=== PATIENT | male | born 1975 | race Caucasian/White ===

== ENCOUNTER 2017-06-27 16:30 | Inpatient (IN) | payer MEDICARE ==
[~2017-06-27] VITALS: Ht 167.6 cm; Wt 94.4 kg
[2017-06-27 17:49] VITALS: BP 107/70; BMI 32.3
[2017-06-27 18:14] LABS: BASOPHILS 0.1 % (0-2); HEMATOCRIT 43.5 % (42.0-54.0); HEMOGLOBIN 14.5 g/dL (13.5-17.5); IMMATURE GRANULOCYTES 1.7 % (0-5); LYMPHOCYTES 12.5 % (15-50); MCH 27.2 pg (26.0-34.0); MCHC 33.3 g/dL (31.0-37.0); MCV 81.5 fL (80.0-100.0); MEAN PLATELET VOLUME 9.6 fL (7.4-10.4); MONOCYTES 11.2 % (2-11); NEUTROPHILS 72.5 % (40-80); PLATELET COUNT 220 10x3/uL (130-400); RBC 5.34 10x6/uL (4.20-6.10); RDW 14.6 % (11.5-14.5); WBC 7.8 10x3/uL (4.8-10.8)
[2017-06-27] MEDS ORDERED: TACROLIMUS ANHYD1 MG PO (18:17)
[2017-06-27] MEDS ORDERED: CELLCEPT250 MG PO (18:20)
[2017-06-27] MEDS ORDERED: METOPROLOL TART50 MG PO (18:21)
[2017-06-27] MEDS ORDERED: LIPITOR80 MG PO (18:21)
[2017-06-27 18:23] LABS: ALBUMIN 3.5 g/dL (3.4-5.0); BILIRUBIN - DIRECT 0.08 mg/dL (0.00-0.30); BILIRUBIN - INDIRECT 0.27 mg/dL (0.00-1.00); BILIRUBIN - TOTAL 0.35 mg/dL (0.2-1.3); CALCIUM 7.9 mg/dL (8.5-10.1); CARBON DIOXIDE 14.5 mmol/L (21.0-32.0); CREATININE - SERUM 2.2 mg/dL (0.6-1.3); POTASSIUM - SERUM 5.5 mmol/L (3.5-5.1); PROTEIN - SERUM 6.8 g/dL (6.4-8.2)
[2017-06-27] MEDS ORDERED: VASCEPA1 GM PO (18:23)
[2017-06-27] MEDS ORDERED: BYDUREON P2 MG/0.65 SC (18:23)
[2017-06-27] MEDS ORDERED: MAG-OX 400 MG400 MG PO (18:24)
[2017-06-27] MEDS ORDERED: TRICOR48 MG PO (18:25)
[2017-06-27] MEDS ORDERED: ACETAMINOPHEN500 M1 PO (18:25)
--- NOTE | 2017-06-27 18:42 | NUR ---
DR GARCIA PAGED ABOUT LAB.
--- NOTE | 2017-06-27 18:51 | NUR ---
DR GARCIA CALLED LABS REVIEWED. NEW ORDERS OBTAINED.
[2017-06-27 19:00] VITALS: BP 130/76
--- NOTE | 2017-06-27 19:18 | NUR ---
Received patient resting in bed. Alert and oriented x 4, pleasant on approach. Made aware that both and have approved that his insulin pump may remain in and be used by patient to manage his diabetic insulin needs. Reviewed settings with patient. Patient is on Humalog Quick Pen, from midnight to 4pm he [id number] 6.2 Units of insulin, and from 4pm to midnight he receives 6 Units of insulin. His machine checks his BG every 5 minutes. When his BG elevates to above 250, he is notified by the machine and then he checks his preprogramed settings to see how much bolus insulin he needs to give. Will check in with patient later regarding his BG checks. Patient denies any nausea at this time and states he has had no emesis since admission. Denies any pain or discomfort. Currently his PIV is in his left forearm infusing NS @150ml/hr. Patient is requesting his original copy of his home medications to be returned to him and we can make a copy for his chart. I will check his chart to obtain same.
--- NOTE | 2017-06-27 20:11 | NUR ---
Vomiting in BR, large amount, yellow orange color thick emesis. Given Zofran 4mg per IV PRN, will monitor for effectiveness. Had been up to BR and had a BM and voided but due to emesis specimen was contaminated before it could be collected. Patient will call staff when next voids and when has next BM.
--- NOTE | 2017-06-27 21:19 | NUR ---
HS WR=740, patient has givenhimself isulin from his insulin pump per preset amounts. Gave self 5 Units of Humalog Quick insulin and 10 Units of Novolog.
--- NOTE | 2017-06-27 21:24 | NUR ---
PIV site noted to have swelling, attempted to flush, no blood return and patient complains of pain. Alerted Charge Nurse, PIV has started to infiltrate, infusion stopped.
--- NOTE | 2017-06-27 21:59 | NUR ---
Urine specimen obtained and sent to lab, Zofran PRN given earlier has been effective, no furthur vomiting episodes, denies nausea at this time.
--- NOTE | 2017-06-27 22:05 | NUR ---
Attempted x 2 to resite PIV, blood return each time but unable to push needle through query valve. Charge Nurse will try when available.
[2017-06-27 22:11] LABS: APPEARANCE CLEAR (CLEAR); BILIRUBIN NEGATIVE (NEGATIVE); COLOR YELLOW (YELLOW); GLUCOSE 1000 mg/dL (NEGATIVE); KETONE NEGATIVE (NEGATIVE); LEUKOCYTE ESTERASE NEGATIVE (NEGATIVE); NITRITE NEGATIVE (NEGATIVE); PROTEIN NEGATIVE (NEGATIVE); SPECIFIC GRAVITY 1.015 (1.005-1.020); UROBILINOGEN NORMAL (NORMAL)
--- NOTE | 2017-06-27 22:35 | NUR ---
PIV re-sited by Charge Nurse in lower left arm. Patient is reserve right arm. PIV is #20 and IV fluids restarted infusing.
--- NOTE | 2017-06-27 23:30 | NUR ---
K5dismzm comfortably, denies furthur nausea. Zofran effective, has had no furthur emesis, states feeling well at this time. Requesting [place] Soda and same given.
[2017-06-28] VITALS: BP 119/70
--- NOTE | 2017-06-28 02:59 | NUR ---
Patient reports low BG, perspiring, shaky, BG = 47. Showed staff the reading on his personal machine. Given snack of peanut butter and sanchez grahams.
--- NOTE | 2017-06-28 03:00 | NUR ---
Persipring, sweaty, cool clammy skin, given partial bedbath by two staff, changed into clean dry hospital gown.
--- NOTE | 2017-06-28 03:19 | NUR ---
BG check on patient's machine now is 95.
[2017-06-28 04:00] VITALS: BP 107/66
[2017-06-28 05:34] LABS: BASOPHILS 0.3 % (0-2); EOSINOPHILS 1.7 % (0-7); HEMATOCRIT 41.2 % (42.0-54.0); HEMOGLOBIN 13.8 g/dL (13.5-17.5); LYMPHOCYTES 13.1 % (15-50); MCH 27.1 pg (26.0-34.0); MCHC 33.5 g/dL (31.0-37.0); MCV 80.8 fL (80.0-100.0); MEAN PLATELET VOLUME 9.3 fL (7.4-10.4); MONOCYTES 12.2 % (2-11); NEUTROPHILS 71.7 % (40-80); PLATELET COUNT 220 10x3/uL (130-400); RDW 14.5 % (11.5-14.5); WBC 7.9 10x3/uL (4.8-10.8)
[2017-06-28 05:53] LABS: CALCIUM 7.9 mg/dL (8.5-10.1); CREATININE - SERUM 2.3 mg/dL (0.6-1.3)
[2017-06-28 05:56] LABS: ANION GAP 15.4 mmol/L (8-16); CARBON DIOXIDE 18.9 mmol/L (21.0-32.0); POTASSIUM - SERUM 4.3 mmol/L (3.5-5.1)
--- NOTE | 2017-06-28 06:17 | NUR ---
Resting quietly, BG =172 at this time per patient's personal insulin pump. Skin warm and dry at this time. Respirations unlabored. Denies pain or discomfort.
[2017-06-28 08:00] VITALS: BP 116/63
--- NOTE | 2017-06-28 08:00 | NUR ---
AM ROUNDS - PT IS AWAKE IN BED. RESERVE RIGHT ARM. PT REFUSES SCD. PT ON RA. IV TO LEFT ARM, D5W WITH BICARB. BED AT LOWEST POSITION. CALL LAGUNAS IN REACH. SIDE RAILS UP X2. NO NEEDS AT THIS TIME. WILL CONTINUE TO MONITOR
--- NOTE | 2017-06-28 10:39 | NUR ---
CALLED PHARMACY BECAUSE WE DO NOT HAVE TRICORE. WAITING ON PHARMACY
--- NOTE | 2017-06-28 11:53 | NUR ---
CALLED PHARMACY AGAIN ABOUT NOT HAVING TRICOR. AWAITING MEDICATION
[2017-06-28 12:50] VITALS: Ht 167.6 cm; Wt 94.4 kg
[2017-06-28 13:33] VITALS: BP 108/68
--- NOTE | 2017-06-28 14:04 | HP ---
PATIENT: PENNIE BADILLO MEDICAL RECORD: [id number] ACCOUNT: [id number] LOCATION:[address] : [birth year] ADMISSION DATE: 06/27/17 HISTORY AND PHYSICAL EXAMINATION REASON FOR ADMISSION: Intractable diarrhea, hypoglycemia and type 1 diabetic. HISTORY OF PRESENT ILLNESS: The patient is a 42-year-old male with history of type 1 diabetes and previous renal transplant. The patient states his whole family has had diarrhea 2 weeks ago. He developed about 8 days ago. He is having 8 stools a day and saw Dr. Castro 4 days ago, was placed on Lomotil and a lactose free diet. His creatinine at that time was 1.8, which is baseline. He came back today because his diarrhea had continued. He says his blood sugars have been dropping and had been unable to keep up with his calorie intake. His blood sugar was 70 and felt near syncopal. In the office, he was afebrile, it has minimal tenderness in his lower abdomen. He is now admitted to the hospital for recurrent diarrhea, acute renal insufficiency and type 1 diabetes mellitus with hypoglycemia. PAST MEDICAL HISTORY: Type 1 diabetic with end-stage renal disease, post-renal transplant in 2012, history of GERD, HPLD, diabetic peripheral neuropathy, history of cellulitis, GERD, hyperlipidemia, hypertension, diabetic retinopathy, retinal detachment, right eye remotely, sepsis remotely, reactive airway disease, decreased hearing. PAST SURGICAL HISTORY: Retinal tear detached on the right, transplant of right kidney, trigger finger release, finger external fixation device application performed, incision and drainage performed by Dr. Lizarraga on index finger and then removal of hardware. SOCIAL HISTORY: Nonsmoker, nondrinker. He is and lives with his and son. He is employed. FAMILY HISTORY: Positive for hypertension in his father, kidney problems with his mother and sister has type 1 diabetes. CURRENT MEDICATIONS: Bydureon 2 mg injected every 7 days, NovoLog per sliding scale. Continue meds, Pepcid 20 mg p.o. at h.s. Prograf 1 mg 2 caps p.o. b.i.d., CellCept 200 mg 3 caps p.o. b.i.d., Lantus 35 units subQ q.p.m. Vascepa 1 gram 2 caps p.o. b.i.d., metoprolol tartrate 50 mg p.o. b.i.d. ALLERGIES: None mentioned. REVIEW OF SYSTEMS: GENERAL: Had fever and has been fatigued with poor appetite. HEENT: Has trouble hearing. No recent new visual private branch exchange repairer his chronic issues. Denies sore throat. RESPIRATORY: No SOB or cough. CARDIAC: No chest pain, palpitations or edema. GASTROINTESTINAL: He has had nausea and vomited once. He has had significant 4-6 stools, watery diarrhea for 8 days. ENDOCRINE: Denies polyuria, polydipsia, heat or cold intolerance. NEUROLOGIC: Has chronic trouble with numbness in the bottoms of his feet and tops of his feet and ankles. Denies headaches or seizures. MUSCULOSKELETAL: Denies arthralgias. HISTORY AND PHYSICAL [id number] PENNIE BADILLO PHYSICAL EXAMINATION: VITAL SIGNS: Blood pressure 130/80, heart rate is 90 and regular, respirations are 18. Weight is currently pending. HEENT: Head is normocephalic. Eyes were clear with poor vision, OU. Oropharynx unremarkable. NECK: No bruits or masses. CHEST: Distant breath sounds without wheeze or rales. HEART: Tachycardic with I/ aortic murmur. ABDOMEN: Soft. Hyperactive bowel sounds, nontender. RECTAL: Deferred. EXTREMITIES: Show no gross edema. He has good sensation to touch in the bottoms of both feet. NEUROLOGICAL: He is oriented to person, place, and time. Cranial nerves are intact. Sensory is decreased in both lower extremities below the ankles. LABORATORY DATA: Blood sugar in the office was 70. Other lab is currently pending. ASSESSMENT: 1. Intractable diarrhea with [id number] renal insufficiency 2. Type 1 diabetes mellitus. 3. History of renal transplant, on insulin pump. PLAN: The patient will be placed on high dose IV fluids. Renal consult will be obtained. Continue home medications. We will lower his evening insulin dose sliding scale insulin. Further workup pending clinical course. Stool studies will be obtained. TRANSINT:[id number] Voice Confirmation ID: [id number] DOCUMENT ID: [id number] NANY MONTESINOS MD at 1404 CC: [id number] DICTATION DATE: 06/27/171751 BILINGUAL SALES REPRESENTATIVE: 06/27/172127 ADM IN [address] [place] [address]
[2017-06-28 16:55] VITALS: BP 111/66
--- NOTE | 2017-06-28 17:03 | NUR ---
PT IN BED RESTING WITH NO NEEDS AT THIS TIME. WILL CONTINUE TO MONITOR
[2017-06-28 19:00] VITALS: BP 115/57
--- NOTE | 2017-06-28 19:30 | NUR ---
LAB STAFF CALL AND STATE: PT POSITIVE FOR C DIFF. EXPLAIN IT TO PT, AND PUT ISOLATION PRECAUTIONS ON DOOR.
--- NOTE | 2017-06-28 20:15 | NUR ---
REST IN BED AND WATCH TV.
[2017-06-29] VITALS: BP 134/68
--- NOTE | 2017-06-29 03:06 | NUR ---
REST IN BED QUIETLY, EYE LOSE, CALL LIGHT WITHIN REACH.
[2017-06-29 04:00] VITALS: BP 111/57
[2017-06-29 05:21] LABS: HEMATOCRIT 35.8 % (42.0-54.0); HEMOGLOBIN 11.9 g/dL (13.5-17.5); LYMPHOCYTES 14.4 % (15-50); MCH 26.1 pg (26.0-34.0); MCHC 33.2 g/dL (31.0-37.0); MCV 78.5 fL (80.0-100.0); MEAN PLATELET VOLUME 8.7 fL (7.4-10.4); NEUTROPHILS 71.4 % (40-80); PLATELET COUNT 161 10x3/uL (130-400); RBC 4.56 10x6/uL (4.20-6.10); RDW 14.3 % (11.5-14.5); WBC 4.5 10x3/uL (4.8-10.8)
[2017-06-29 05:36] LABS: ANION GAP 15.4 mmol/L (8-16); CALCIUM 7.3 mg/dL (8.5-10.1); CARBON DIOXIDE 21.6 mmol/L (21.0-32.0); CREATININE - SERUM 2.1 mg/dL (0.6-1.3); MAGNESIUM - SERUM 1.3 mg/dL (1.8-2.4)
--- NOTE | 2017-06-29 07:30 | NUR ---
REPORT RECIEVED. PT RESTING QUIETLY, DENIES NEEDS AT THIS TIME. RR EVEN AND UNLABORED. INTRODUCED SELF AND PLACED NAME ON WHITE BOARD. WILL CTM.
--- NOTE | 2017-06-29 07:30 | NUR ---
REPORT RECIVED. PT RESTING QUIETLY, DENIES NEEDS AT THIS TIME. RR EVEN AND UNLABORED. STARTED 2ND BAG OF MAG SULFATE. WILL CTM.
--- NOTE | 2017-06-29 07:43 | NUR ---
AM ROUNDS - PT IN BED AND APPEARS TO BE SLEEPING WITH EQUAL AND NON LABORED BREATHING. PT IS ON CONTACT ISOLATION. IV TO LEFT FA, D5W BICARB AT 125. PT ON ROOM AIR. WILL CONTINUE TO MONITOR
[2017-06-29 08:39] VITALS: BP 124/72
[2017-06-29 13:00] VITALS: BP 93/72
--- NOTE | 2017-06-29 16:05 | NUR ---
PT IV HAS BECOME PAINFUL AND NO LONGER WORKING. 2 RNs HAVE BEEN UNSUCCESSFUL IN GAINING IV ACCESS. WILL CONTINUE TO MONITOR.
[2017-06-29 17:31] VITALS: BP 139/70
--- NOTE | 2017-06-29 18:19 | NUR ---
IV STARTED ON PT. STARTED IV MEDS. WILL CONTINUE TO MONITOR
[2017-06-29 19:00] VITALS: BP 136/58
[2017-06-30] VITALS: BP 106/48
--- NOTE | 2017-06-30 01:00 | NUR ---
PT RESTING QUIETLY, RR EVEN AND UNLABORED. PT ALERT AND ORIENTED. WILL CTM.
[2017-06-30 05:01] LABS: BASOPHILS 0.2 % (0-2); EOSINOPHILS 2.2 % (0-7); HEMATOCRIT 37.4 % (42.0-54.0); HEMOGLOBIN 12.2 g/dL (13.5-17.5); IMMATURE GRANULOCYTES 0.4 % (0-5); LYMPHOCYTES 12.8 % (15-50); MCH 26.8 pg (26.0-34.0); MCHC 32.6 g/dL (31.0-37.0); MCV 82.2 fL (80.0-100.0); MEAN PLATELET VOLUME 9.3 fL (7.4-10.4); MONOCYTES 13.7 % (2-11); NEUTROPHILS 70.7 % (40-80); PLATELET COUNT 159 10x3/uL (130-400); RBC 4.55 10x6/uL (4.20-6.10); RDW 14.3 % (11.5-14.5); WBC 5.5 10x3/uL (4.8-10.8)
[2017-06-30 05:15] LABS: ANION GAP 16.9 mmol/L (8-16); CARBON DIOXIDE 21.6 mmol/L (21.0-32.0); PHOSPHOROUS 1.7 mg/dL (2.5-4.9)
[2017-06-30 05:19] LABS: MAGNESIUM - SERUM 2.5 mg/dL (1.8-2.4); POTASSIUM - SERUM 3.5 mmol/L (3.5-5.1)
--- NOTE | 2017-06-30 06:16 | NUR ---
PT RESTINGQ QUIETLY, RR EVEN AND UNLABORED. PT DENIES NEEDS AT THIS TIME. WILL GIVE REPORT ON PT CONDITION FOR THE NIGHT.
--- NOTE | 2017-06-30 07:45 | NUR ---
AM ROUNDS - PT IN BED AND APPEARS TO BE SLEEPING WITH EQUAL AND NON LABORED BREATHING. IV TO LEFT UPPER ARM, D5W WITH BICARB AT 125CC/HR. CONTACT ISO. RESERVE RIGHT ARM. BED AT LOWEST POSITION, CALL LAGUNAS IN USE/REACH, SIDE RAILS UP X2
[2017-06-30 08:15] VITALS: BP 137/71
[2017-06-30 12:00] VITALS: BP 98/59
[2017-06-30 16:05] VITALS: BP 112/60
--- NOTE | 2017-06-30 17:07 | NUR ---
PT IS IN BED. NO NEEDS AT THIS TIME. WILL CONTINUE TO MONITOR
--- NOTE | 2017-06-30 19:40 | NUR ---
PT REST IN BED AND WATCH TV.
[2017-06-30 20:00] VITALS: BP 123/63
--- NOTE | 2017-06-30 23:27 | NUR ---
VISUAL INSPECTOR AT BEDSIDE TO OBTAIN VITALS, CALL LIGHT IN REACH. WILL CONTINUE WITH PLAN OF CARE.
[2017-07-01 01:47] VITALS: BP 134/72
--- NOTE | 2017-07-01 02:28 | NUR ---
PT REST QUIETLY IN BED, EYE CLOSE, CALL LIGHT WITHIN REACH.
[2017-07-01 05:00] VITALS: BP 150/83
--- NOTE | 2017-07-01 07:42 | NUR ---
AM ROUNDS- PT IN BED, DENIES ANY NEEDS AT THIS TIME. BED LOW AND WHEELS LOCKED, BEDSIDE RAILS X2, CALL LIGHT IN REACH. RESP EVEN AND UNLABORED. LT UPPER ARM INFUSING SODIUM BICARB AT 125CC/HR. NAD NOTED, WILL CONTINUE TO MONITOR.
[2017-07-01 08:00] VITALS: BP 127/74
--- NOTE | 2017-07-01 09:25 | NUR ---
AM MEDS GIVEN AT THIS TIME. NS FLUIDS HUNG TO INFUSE AT 100CC/HR. PT DENIES ANYT NEEDS AT THIS TIME. CALL LIGHT IN REACH, NAD NOTED, WILL CONTINUE TO MONITOR.
[2017-07-01 12:00] VITALS: BP 137/72
[2017-07-01 12:11] LABS: CYTOMEGALOVIRUS AB IGG <0.60 U/mL (0.00-0.59)
--- NOTE | 2017-07-01 13:18 | NUR ---
Nutrition follow-up: Diet: ADA consistent CHO PO intake 100% of meals Pt remains in isolation for C.Diff +BM, loose Wt: 200# PO intake is good at this time. RDN following.
[2017-07-01 16:00] VITALS: BP 136/73
--- NOTE | 2017-07-01 16:49 | NUR ---
BLOOD SUGAR OF 105, NO COVERAGE NEEDED PER S/S. DR. ALBARADO AT BEDSIDE TO ASSESS PT, PT DENIES ANY NEEDS AT THIS TIME. CALL LIGHT IN REACH, NAD NOTED, WILL CONTINUE TO MONITOR.
[2017-07-01 20:08] VITALS: BP 136/70
--- NOTE | 2017-07-01 21:28 | NUR ---
NIGHT TIME MEDS GIVEN AT THIS TIME. BLOOD SUGAR OF 143, NO COVERAGE NEEDED PER S/S. PT REFUSED TO TAKE LANTUS STATED " I DONT WANT TO GET LOW IN T HE AM". PT DENIES ANY NEEDS AT THIS TIME. CALL LIGHT IN REACH, NAD NOTED, WILL CONTINUE TO MONITOR.
--- NOTE | 2017-07-01 22:30 | NUR ---
NO CHANGE FROM PREVIOUS ASSESSMENT. PT IN BED, DENIES ANY NEEDS AT THIS TIME. RESP EVEN AND UNLABORED. CALL LIGHT IN REACH, NAD NOTED, WILL CONTINUE TO MONITOR.
[2017-07-02 01:09] VITALS: BP 130/68
[2017-07-02 04:00] VITALS: BP 151/86
[2017-07-02 05:38] LABS: BASOPHILS 0.2 % (0-2); EOSINOPHILS 3.1 % (0-7); HEMATOCRIT 37.2 % (42.0-54.0); IMMATURE GRANULOCYTES 0.4 % (0-5); LYMPHOCYTES 11.5 % (15-50); MCH 27.1 pg (26.0-34.0); MCHC 32.3 g/dL (31.0-37.0); MONOCYTES 12.8 % (2-11); PLATELET COUNT 135 10x3/uL (130-400); RBC 4.43 10x6/uL (4.20-6.10); RDW 14.2 % (11.5-14.5); WBC 5.2 10x3/uL (4.8-10.8)
[2017-07-02 06:17] LABS: ANION GAP 15.1 mmol/L (8-16); CALCIUM 8.3 mg/dL (8.5-10.1); CARBON DIOXIDE 21.6 mmol/L (21.0-32.0); CREATININE - SERUM 1.8 mg/dL (0.6-1.3); MAGNESIUM - SERUM 1.7 mg/dL (1.8-2.4); PHOSPHOROUS 2.7 mg/dL (2.5-4.9); POTASSIUM - SERUM 4.7 mmol/L (3.5-5.1)
--- NOTE | 2017-07-02 07:00 | NUR ---
REPORT RECIEVED FROM OFF COMING NURSE. SEE ASSESSMENT FLOW SHEET. R ARM RESERVED PER ORDRES. BRUIT ASCULTATED AND THRILL PALPATED TO RIGHT ARM. HE STATED " I HAVNT USED IT IN 4 YEARS. NOT EVER SINCE I HAD MY KIDNEY TRANSPLANT" PT CHECKS HIS OWN FSBS WITH HIS INSULIN PUMP. 124 THIS AM. CALL LIGHT IN REACH. WILL CONT POC
[2017-07-02 08:00] VITALS: BP 174/90
[2017-07-02 12:00] VITALS: BP 141/76
--- NOTE | 2017-07-02 12:00 | NUR ---
SELF CHECKED FSBS 121. NO NEEDS VOCIED. CALL LIGHT IN REACH.
--- NOTE | 2017-07-02 14:13 | NUR ---
* Is the patient Alert and Oriented? Yes 0 * How many steps to enter\exit or inside your home? 13 0 * PCP Dr. Bruno 0 * Pharmacy [facility] on [place] 0 * Preadmission Environment Home with Family 0 * ADLs Independent 0 * List name and contact numbers for known caregivers / representatives who currently or will assist patient after discharge: Morena Millan [phone] 0 * Additional services required to return to the preadmission environment? No 0 * Can the patient safely return to the preadmission environment? Yes 0 * Has this patient been hospitalized within the prior 30 days at any hospital? No Patient Name: PENNIE BADILLO Admission Status: Urgent Accout number: [id number] Admission Date: 06-29-2017 : 1975 Admission Diagnosis: Attending: NANY BRUNO Current LOS: 3 Anticipated DC Date: 07-03-2017 Planned Disposition: Home Primary Insurance: MEDICARE A & B Discharge Planning Comments: CM met with patient to assess dc plans/needs. Patient states he lives at home with his & their 7 year old son. He reports he is independent with all ADL's & AIDL's. He has not had home health services or DME. At dc, he will return home with his family. No needs identified or verbalized at this time. CM will follow & assist as needed. Jewellery Designer: Krystina Pena
[2017-07-02 16:00] VITALS: BP 123/76
--- NOTE | 2017-07-02 18:45 | NUR ---
REPORT GIVEN TO ON COMING NURSE. PT IN BED WATCHING TV WITH 0 SS/X OF DISTRESS/DISCOMFORT NOTED. BREATHING NORMAL AND UNLABOERD
[2017-07-02 19:00] VITALS: BP 143/80
[2017-07-03] VITALS: BP 155/80
[2017-07-03 04:00] VITALS: BP 164/87
[2017-07-03 05:53] LABS: BASOPHILS 0.2 % (0-2); EOSINOPHILS 3.4 % (0-7); HEMOGLOBIN 11.8 g/dL (13.5-17.5); IMMATURE GRANULOCYTES 0.6 % (0-5); LYMPHOCYTES 18.6 % (15-50); MCH 27.3 pg (26.0-34.0); MCHC 32.8 g/dL (31.0-37.0); MCV 83.1 fL (80.0-100.0); MEAN PLATELET VOLUME 9.3 fL (7.4-10.4); MONOCYTES 7.5 % (2-11); NEUTROPHILS 69.7 % (40-80); PLATELET COUNT 135 10x3/uL (130-400); RBC 4.33 10x6/uL (4.20-6.10); RDW 14.1 % (11.5-14.5); WBC 5.1 10x3/uL (4.8-10.8)
[2017-07-03 06:03] LABS: ANION GAP 15.9 mmol/L (8-16); CALCIUM 8.4 mg/dL (8.5-10.1); CARBON DIOXIDE 19.3 mmol/L (21.0-32.0); CREATININE - SERUM 1.6 mg/dL (0.6-1.3); MAGNESIUM - SERUM 1.6 mg/dL (1.8-2.4); POTASSIUM - SERUM 5.2 mmol/L (3.5-5.1)
--- NOTE | 2017-07-03 07:00 | NUR ---
REPORT RECEIVED FROM ON COMING NURSE. SEE ASSESSMENT FLOW SHEET. BREATHING NORMAL AND UNLABORED. PT UP AD CALLIE PREFORMING ADL'S INDPENDENTLY SAFLEY. PT HAS AN INSULIN PUMP AND HAS BEEN TAKING HIS OWN FSBS. CALL LIGHT IN REACH.
[2017-07-03 08:18] VITALS: BP 127/79
[2017-07-03 11:34] VITALS: BP 155/89
--- NOTE | 2017-07-03 12:00 | NUR ---
PT FSBS 121. HE CHECKED VIA INSULIN PUMP. 0 S/SX OF DISTRESS/DISCOMFORT NOTED. BREATHING NORMAL AND UNLABOERD. CALL LIGHT IN REACH. WILL CONT POC
[2017-07-03 15:50] VITALS: BP 165/99
--- NOTE | 2017-07-03 18:45 | NUR ---
REPORT GIVEN TO ON COMING NURSE. BREATHING REINA AND UNLABORED. WILL CONT POC
[2017-07-03 19:00] VITALS: BP 176/83
--- NOTE | 2017-07-03 19:48 | NUR ---
RESUMED CARE OF PT, LYING IN BED RESPIRATIONS EVEN AND UNLABORED ON ROOM AIR. LEFT UPPER ARM INFUSING NS @ 100. NO NEEDS AT THIS TIME, CALL LIGHT IN REACH. WILL CONTINUE TO MONITOR. SEE NURSE ASSESSMENT.
[2017-07-04] VITALS: BP 163/78
--- NOTE | 2017-07-04 02:51 | NUR ---
CALL LIGHT IN REACH. WILL CONTINUE WITH PLAN OF CARE. WILL CONTINUE TO MONITOR.
[2017-07-04 04:00] VITALS: BP 162/80
[2017-07-04 06:18] LABS: BASOPHILS 0.2 % (0-2); HEMATOCRIT 34.1 % (42.0-54.0); HEMOGLOBIN 11.3 g/dL (13.5-17.5); IMMATURE GRANULOCYTES 0.5 % (0-5); LYMPHOCYTES 16.2 % (15-50); MCH 27.3 pg (26.0-34.0); MCHC 33.1 g/dL (31.0-37.0); MCV 82.4 fL (80.0-100.0); MEAN PLATELET VOLUME 9.1 fL (7.4-10.4); MONOCYTES 10.9 % (2-11); NEUTROPHILS 69.2 % (40-80); PLATELET COUNT 108 10x3/uL (130-400); RBC 4.14 10x6/uL (4.20-6.10); RDW 14.1 % (11.5-14.5); WBC 4.4 10x3/uL (4.8-10.8)
--- NOTE | 2017-07-04 06:32 | NUR ---
NO CHANGES FROM PREVIOUS ASSESSMENT, CALL LIGHT IN REACH.
[2017-07-04 06:47] LABS: ANION GAP 13.4 mmol/L (8-16); CALCIUM 7.8 mg/dL (8.5-10.1); CARBON DIOXIDE 19.7 mmol/L (21.0-32.0); CREATININE - SERUM 1.6 mg/dL (0.6-1.3); MAGNESIUM - SERUM 1.2 mg/dL (1.8-2.4); PHOSPHOROUS 2.8 mg/dL (2.5-4.9); POTASSIUM - SERUM 5.1 mmol/L (3.5-5.1)
--- NOTE | 2017-07-04 07:37 | NUR ---
AM ROUNDING DONE WITH PATIENT LAYING ON RIGHT SIDE, SNORING. RESP ARE EVEN AND NON LABORED. ON ROOM AIR. LEFT UPPER ARM SEEN WITH NS INFUSING AT 100 CC/HR. WILL COMPLETE ASSESSMENT WHEN AWAKE. WILL CPOC.
[2017-07-04 09:12] VITALS: BP 177/82
[2017-07-04 11:33] VITALS: BP 171/93
--- NOTE | 2017-07-04 12:18 | NUR ---
CALLED TO PATIENT ROOM WITH PATIENT REPORTS THAT HIS IV IS OUT. EVIDENTLY HE TURNED ON HIS SIDE AND IT CAME OUT. I SEE NOTHING TO RE-SITE TO SO I CALLED VERN PAREDES TELESALES SUPERVISOR NURSE. SHE WILL COME LOOK. THIS IS RELAYED TO THE PATIENT.
--- NOTE | 2017-07-04 14:03 | NUR ---
Nutrition Follow Up: Chart reviewed. Pt is eating 100% x past 9 meals. Wt gain since admit noted. +BM 07/03/17. Labs reviewed - glucose elevated. Meds noted. Rec continue current diet. RD following.
[2017-07-04 16:13] VITALS: BP 147/76
--- NOTE | 2017-07-04 17:58 | NUR ---
FEMALE MEMBER AT BEDSIDE. STILL IN ENTERIC ISOLATION. WILL CONTINUE TO FOLLOW.
[2017-07-04 19:00] VITALS: BP 158/85
--- NOTE | 2017-07-04 22:50 | NUR ---
PT IN BED FAMILY MEMBER AT BEDSIDE DENIES NEES AT THIS TIME WILL CONTINUE TO MONITOR
[2017-07-05] VITALS: BP 156/85
[2017-07-05 04:59] LABS: BASOPHILS 0.2 % (0-2); EOSINOPHILS 1.9 % (0-7); HEMATOCRIT 34.8 % (42.0-54.0); HEMOGLOBIN 11.5 g/dL (13.5-17.5); IMMATURE GRANULOCYTES 0.4 % (0-5); LYMPHOCYTES 16.2 % (15-50); MCH 26.9 pg (26.0-34.0); MCV 81.5 fL (80.0-100.0); MEAN PLATELET VOLUME 9.8 fL (7.4-10.4); MONOCYTES 8.6 % (2-11); NEUTROPHILS 72.7 % (40-80); PLATELET COUNT 115 10x3/uL (130-400); RBC 4.27 10x6/uL (4.20-6.10); RDW 14.2 % (11.5-14.5); WBC 4.6 10x3/uL (4.8-10.8)
[2017-07-05 05:20] LABS: ANION GAP 14.2 mmol/L (8-16); CALCIUM 7.6 mg/dL (8.5-10.1); CARBON DIOXIDE 19.7 mmol/L (21.0-32.0); CREATININE - SERUM 1.5 mg/dL (0.6-1.3)
[2017-07-05 05:23] LABS: POTASSIUM - SERUM 5.9 mmol/L (3.5-5.1)
--- NOTE | 2017-07-05 07:48 | NUR ---
AM ROUNDING DONE WITH PATIENT IN ENTERIC ISOLATION. LAYING ON RIGHT SIDE, AROUSS EASILY. LEFT HAND SEEN WITH NS INFUSING AT 100 CC/HR, RESERVE RIGHT ARM WITH AVF, + BRUIT AND THRILL. ON ROOM AIR. WILL CPOC.
[2017-07-05 07:59] VITALS: BP 159/83
[2017-07-05 11:52] VITALS: BP 159/83
--- NOTE | 2017-07-05 12:00 | NUR ---
POC GLUCOSE WAS 182, COVERED WITH 2 U OF INSULIN PER SLIDING SCALE. LUNCH TRAY HERE. WILL CPOC.
[2017-07-05] MEDS ORDERED: VANCOMYCIN250 MG/51 PO (13:04)
[2017-07-05] MEDS ORDERED: FLAGYL500 MG PO (13:04)
[2017-07-05] MEDS ORDERED: TACROLIMUS ANHYD1 MG PO (13:05)
[2017-07-05] MEDS ORDERED: HUMALOG 30100 UNITS/ SC (13:06)
--- NOTE | 2017-07-05 13:37 | NUR ---
IV CONVERTED TO SALINE LOCK PATIENT IS BEING DISCHARGED.
--- NOTE | 2017-07-05 16:54 | NUR ---
Patient Name: SAW BADILLO Encounter No: [id number] : 1975 Primary Insurance: MEDICARE A & B Anticipated DC Date: 07-05-2017 Planned Disposition: Home DCP follow-up note: CM MET WITH PT IN ROOM TO DISCUSS DISCHARGE NEEDS AND PLANNING. CM DISCUSSED AVAILABILITY OF HOME HEALTH, REHAB SERVICES AND MEDICAL EQUIPMENT. PT DENIES DISCHARGE NEEDS. SPOUSE TO TRANSPORT HOME AT DISCHARGE. IMPORTANT MESSAGE FROM MEDICARE PROVIDED AND EXPLAINED. Saw Huston, CASE MANAGEMENT
--- NOTE | 2017-07-05 17:11 | NUR ---
AWAITING RIDE FOR DISCHARGE HOME.
--- NOTE | 2017-07-05 18:01 | NUR ---
SALINE LOCK REMOVED FROM LEFT HAND WITH CATH TIP INTACT. VERBAL AND WRITTEN DISCHARGE INSTRUCTION GIVEN TO PATIENT. AWAITING RIDE FOR DISCHARGE.
== END 2017-07-05 18:25 | disposition home or self-care (01) | DRG 372 ==
LOC: D.M2 16:30 → OBSVTIME 16:30 → D.M2 06-29 10:54
PROVIDERS: Internal Medicine Nephrology; ADMIT Family Medicine
DX: A04.7 Enterocolitis due to Clostridium difficile (principal); N17.9 Acute kidney failure, unspecified; E10.22 Type 1 diabetes mellitus with diabetic chronic kidney disease; N18.2 Chronic kidney disease, stage 2 (mild); E87.6 Hypokalemia; E87.5 Hyperkalemia; K52.9 Noninfective gastroenteritis and colitis, unspecified

== ENCOUNTER → 2017-07-17 15:45 | Outpatient (CLI) | payer MEDICARE ==
[2017-06-28 12:50] VITALS: BMI 32.2
[~2017-07-17 15:45] MED LIST: ACETAMINOPHEN500 M1 PO; BYDUREON P2 MG/0.65 SC; CELLCEPT250 MG PO; FLAGYL500 MG PO; HUMALOG 30100 UNITS/ SC; LIPITOR80 MG PO; MAG-OX 400 MG400 MG PO; METOPROLOL TART50 MG PO; TACROLIMUS ANHYD1 MG PO; TRICOR48 MG PO; VANCOMYCIN250 MG/51 PO; VASCEPA1 GM PO
== END | disposition home or self-care (01) ==
LOC: D.LAB 12:37
DX: R19.7 Diarrhea, unspecified (principal)

== ENCOUNTER → 2017-07-19 11:26 | Outpatient (CLI) | payer MEDICARE ==
[2017-06-28 12:50] VITALS: BMI 32.2
== END | disposition home or self-care (01) ==
LOC: D.LAB 11:26
DX: R19.7 Diarrhea, unspecified (principal)